=== PATIENT | female | born 1950 | race Caucasian/White ===

== ENCOUNTER 2018-02-24 18:56 | Emergency (ER) | payer OTHER ==
[~2018-02-24] VITALS: Ht 157.5 cm; Wt 84.4 kg
--- NOTE | 2018-02-24 19:04 | NUR ---
PT BIBA ALS
--- NOTE | 2018-02-24 19:09 | NUR ---
PT TAKEN TO BED 10
[2018-02-24 19:14] VITALS: BP 134/69
--- NOTE | 2018-02-24 19:52 | NUR ---
Patient came in by [facility] with complaints of chest pain. [facility] gave her 1 dose of nitro and a breathing treatment. pain level dropped from a 10/10 to 4/10 non radiating. patient is on 2L OF O2 with a SAT. OF 94. Wheezing bilateral upon assessment. When [facility] moved her, she had a panic attack and had SOB. patient has an IV on the left AC 20G. Patient has a productive cough and has pain in the head and chest when coughing. patient states that coming into the hospital, her fingers and arms went numb. but gained her feeling back. she has a history of COPD and asthma and CHF. Patient also has a history of heart attack, stroke, HTN.
[2018-02-24] MEDS ORDERED: NITROGLYCERIN 0.4 MG TAB SL ONE (20:45)
[2018-02-24] MEDS ORDERED: MORPHINE SULFATE 2 MG/ML SYR IVP ONE (20:45)
[2018-02-24] MEDS ORDERED: ONDANSETRON 4 MG/2 ML VIAL IVP ONE (20:45)
--- NOTE | 2018-02-24 21:35 | NUR ---
PATIENT REFUSED MEDICATION DR ELI WAS NOTIFIED
--- NOTE | 2018-02-24 21:47 | NUR ---
Dr. Finnegan evaluating patient at bedside.
[2018-02-24 21:49] LABS: BASOPHILS % (AUTO) 0.2 % (0.0-2.0); EOSINOPHILS # (AUTO) 0.1 K/uL (0-0.4); EOSINOPHILS % (AUTO) 1.7 % (0.0-4.0); HEMATOCRIT 38.9 % (36-48); HEMOGLOBIN 13.1 g/dL (12.0-16.0); LYMPHOCYTES # (AUTO) 0.9 K/uL (2.5-16.5); LYMPHOCYTES % (AUTO) 13.1 % (20.5-51.1); MEAN CORPUSCULAR HEMOGLOBIN 30 pg (27-31); MEAN CORPUSCULAR HGB CONC 34 g/dL (33-37); MEAN CORPUSCULAR VOLUME 89.7 fL (80-94); MONOCYTES # (AUTO) 0.7 K/uL (0.8-1.0); MONOCYTES % (AUTO) 9.4 % (1.7-9.3); NEUTROPHILS # (AUTO) 5.5 K/uL (1.8-7.7); NEUTROPHILS % (AUTO) 75.6 % (42.2-75.2); PLATELET COUNT (AUTO) 203 K/uL (140-450); RED BLOOD CELL COUNT(AUTO) 4.34 MIL/uL (4.20-5.40); RED CELL DISTRIBUTION WIDTH 13.2 % (11.6-13.7); WHITE BLOOD COUNT (AUTO) 7.2 K/uL (4.8-10.8)
[2018-02-24 22:08] LABS: CARBON DIOXIDE 31.5 mmol/L (21-32); CREATININE 1.2 mg/dL (0.6-1.3); POTASSIUM 4.5 mmol/L (3.5-5.1)
[2018-02-24 22:15] LABS: PROTHROMBIN TIME 10.9 secs (10.8-13.4)
[2018-02-24 22:16] LABS: ALBUMIN 3.4 g/dL (3.4-5.0); TOTAL BILIRUBIN 0.9 mg/dL (0.0-1.0)
[2018-02-24] MEDS ORDERED: IPRATROPIUM 0.02% 0.5 MG/2.5 ML NEBU INH ONE (22:40)
[2018-02-24] MEDS ORDERED: ALBUTEROL 0.083% 2.5 MG/3 ML NEBU INH ONE (22:40)
[2018-02-24] MEDS ORDERED: methylPREDNISolone SS 125 MG/2 ML VIAL IVP ONE (22:40)
--- NOTE | 2018-02-24 22:43 | NUR ---
Respiratory Therapist at bedside for respiratory intervention.
--- NOTE | 2018-02-24 22:48 | NUR ---
Respiratory Therapist at bedside for respiratory intervention. Patient tolerated .
--- NOTE | 2018-02-24 23:40 | NUR ---
ct came for patient
--- NOTE | 2018-02-24 23:58 | NUR ---
PT RETURN FROM CT
[2018-02-25] MEDS ORDERED: AZITHROMYCIN 250 MG TAB PO ONE (00:55)
[2018-02-25 01:11] VITALS: BP 109/62
[2018-02-25] MEDS ORDERED: FURO-570 PO (01:14)
[2018-02-25] MEDS ORDERED: ALBU-118 IH (01:14)
[2018-02-25] MEDS ORDERED: LORA-476 PO (01:14)
[2018-02-25] MEDS ORDERED: CHOL5000 PO (01:14)
[2018-02-25] MEDS ORDERED: SIMV40TA1 PO (01:14)
[2018-02-25] MEDS ORDERED: LISI30TA6 PO (01:14)
[2018-02-25] MEDS ORDERED: ASPI325T49 PO (01:14)
[2018-02-25] MEDS ORDERED: PAX10 PO (01:14)
[2018-02-25] MEDS ORDERED: SPIMDI INH (01:14)
[2018-02-25] MEDS ORDERED: CARV3.12 PO (01:14)
[2018-02-25] MEDS ORDERED: FLUO40CA6 PO (01:14)
[2018-02-25] MEDS ORDERED: ACET-9800 PO (01:18)
[2018-02-25] MEDS ORDERED: FORM1 IH (01:18)
[2018-02-25] MEDS ORDERED: CYAN1TAB67 PO (01:18)
--- NOTE | 2018-02-25 01:56 | NUR ---
Patient discharged with v/s stable. Written and verbal after care instructions given and explained. Patient alert, oriented and verbalized understanding of instructions. Ambulatory with steady gait. All questions addressed prior to discharge. ID band removed. Patient advised to follow up with PMD. Rx of PREDNISONE, ALBUTEROL, AND ZITHROMAX WAS given. Patient educated on indication of medication including possible reaction and side effects. Opportunity to ask questions provided and answered.
== END 2018-02-25 01:56 | disposition home or self-care (01) ==
LOC: MED 18:56
DX: J44.1 Chronic obstructive pulmonary disease with (acute) exacerbation (principal); R07.9 Chest pain, unspecified; I10 Essential (primary) hypertension; Z88.0 Allergy status to penicillin; Z88.2 Allergy status to sulfonamides; Z86.73 Personal history of transient ischemic attack (TIA), and cerebral infarction without residual deficits
CPT/HCPCS: 36415; 71045; 71275; 80053; 83880; 84484; 85025; 85379; 85610; 85730; 93005; 94640; 96374; 99285; J2930; J7613; J7644; Q9967; J2270; J2405

== ENCOUNTER 2018-06-07 23:05 | Emergency (ER) | payer OTHER ==
[~2018-06-07] VITALS: Ht 154.9 cm; Wt 85.3 kg
[~2018-06-07 23:05] MED LIST: ACET-9800 PO; ALBU-118 IH; ASPI325T49 PO; CARV3.12 PO; CHOL5000 PO; CYAN1TAB67 PO; FLUO40CA6 PO; FORM1 IH; FURO-570 PO; LISI30TA6 PO; LORA-476 PO; PAX10 PO; SIMV40TA1 PO; SPIMDI INH
--- NOTE | 2018-06-07 23:05 | NUR ---
PT MICA ALS. TAKEN TO BED 1
[2018-06-07 23:06] VITALS: BP 131/96
--- NOTE | 2018-06-07 23:06 | NUR ---
67/F BIBA FROM HOME. PT WAS WALKING TO BATHROOM, HAD AN EPISODE OF DIZZINESS AND LIGHTHEADEDNESS, PT FELL ON HER KNEES, POSSIBLE SYNCOPE, PT REPORTS NOT REMEMBERING MUCH OF WHAT HAPPENED. PER EMS, PT NSR ON 12 LEAD, BS 134, 200ML NS INFUSED ON IV L AC 20G. PT ARRIVES AOX4, GCS 15, PERRLA, AMBULATES INDEPENDENTLY. LUNG SOUNDS CLEAR BL. PT DENIES CP, SOB, VOMITING, DIARRHEA OR ANY PAIN. PT REPORTS NAUSEA THAT RESOLVED. BS 176 AT THIS TIME. HX COPD, CHF, [place], HTN, HLD, SMOKING RX LISINOPRIL, LABETALOL, LORAZEPAM, SIMVASTATIN, ALBUTEROL INHALER, FUROSEMIDE, ASPIRIN
--- NOTE | 2018-06-07 23:22 | NUR ---
Dr. Gtz evaluating patient at bedside.
--- NOTE | 2018-06-07 23:29 | NUR ---
FAMILY AT BEDSIDE
[2018-06-07] MEDS: NACL 0.9% 1,000 ML IV ONE (23:40)
--- NOTE | 2018-06-07 23:44 | NUR ---
PROPERTY MANAGER AT BEDSIDE
[2018-06-07 23:58] LABS: BASOPHILS % (AUTO) 0.3 % (0.0-2.0); EOSINOPHILS # (AUTO) 0.4 K/uL (0-0.4); EOSINOPHILS % (AUTO) 3.4 % (0.0-4.0); HEMATOCRIT 37.7 % (36-48); HEMOGLOBIN 12.4 g/dL (12.0-16.0); LYMPHOCYTES # (AUTO) 2.3 K/uL (2.5-16.5); LYMPHOCYTES % (AUTO) 21.7 % (20.5-51.1); MEAN CORPUSCULAR HEMOGLOBIN 30 pg (27-31); MEAN CORPUSCULAR HGB CONC 33 g/dL (33-37); MEAN CORPUSCULAR VOLUME 91.2 fL (80-94); MONOCYTES # (AUTO) 0.7 K/uL (0.8-1.0); NEUTROPHILS # (AUTO) 7.1 K/uL (1.8-7.7); NEUTROPHILS % (AUTO) 67.6 % (42.2-75.2); PLATELET COUNT (AUTO) 240 K/uL (140-450); RED BLOOD CELL COUNT(AUTO) 4.13 MIL/uL (4.20-5.40); RED CELL DISTRIBUTION WIDTH 13.1 % (11.6-13.7); WHITE BLOOD COUNT (AUTO) 10.5 K/uL (4.8-10.8)
[2018-06-08 00:10] LABS: CARBON DIOXIDE 32.7 mmol/L (21-32); CREATININE 1.7 mg/dL (0.6-1.3); POTASSIUM 3.7 mmol/L (3.5-5.1)
[2018-06-08 00:16] LABS: ALBUMIN 3.1 g/dL (3.4-5.0); TOTAL BILIRUBIN 0.6 mg/dL (0.0-1.0)
[2018-06-08] MEDS: KETOROLAC 30 MG/ML VIAL IVP ONE (00:31)
[2018-06-08 00:46] VITALS: BP 94/87
== END 2018-06-08 00:47 | disposition home or self-care (01) ==
LOC: MED 23:05
DX: R19.7 Diarrhea, unspecified (principal); R55 Syncope and collapse; E86.0 Dehydration; I10 Essential (primary) hypertension; F17.200 Nicotine dependence, unspecified, uncomplicated; J44.9 Chronic obstructive pulmonary disease, unspecified; Z88.0 Allergy status to penicillin; Z88.2 Allergy status to sulfonamides; Z79.899 Other long term (current) drug therapy; Z79.82 Long term (current) use of aspirin; Z86.73 Personal history of transient ischemic attack (TIA), and cerebral infarction without residual deficits; Z90.49 Acquired absence of other specified parts of digestive tract
CPT/HCPCS: 36415; 80053; 81002; 82948; 84484; 85025; 93005; 96361; 96374; 99285; J1885; J7030

== ENCOUNTER 2023-07-22 08:07 | Inpatient (IN) | payer OTHER ==
[~2023-07-22] VITALS: Ht 167.6 cm; Wt 83.9 kg
[2023-07-22] VITALS (12 sets, daily range): BP systolic 109–159; BP diastolic 55–116; PULSE 24–141; RESP 6–24; TEMP 97–97.4; O2SAT 84–100
[~2023-07-22 08:07] MED LIST changes: +ASPI-1205 PO; -ASPI325T49 PO; -CHOL5000 PO; -CYAN1TAB67 PO; -FLUO40CA6 PO; -FORM1 IH; +MOME13HF7 IH; +SIMV-373 PO; -SIMV40TA1 PO
[2023-07-22] MEDS ORDERED: INTUBATION KIT MC ONE (08:09)
[2023-07-22] MEDS ORDERED: ROCURONIUM 50 MG/5 ML VIAL IV ONE (08:18)
[2023-07-22] MEDS ORDERED: NACL 0.9% 1,000 ML IV SCH ×2 (08:25→08:35)
[2023-07-22] MEDS ORDERED: PROPOFOL 1000 MG/100 ML PREMIX 100 ML IV ONE (08:29)
[2023-07-22] MEDS ORDERED: ETOMIDATE 20 MG/10 ML VIAL IVP ONE (08:30)
[2023-07-22] MEDS ORDERED: AZITHROMYCIN 500 MG in DEXTROSE 5% 250 ML IV ONE (08:30)
[2023-07-22] MEDS ORDERED: SUCCINYLCHOLINE CHLORIDE 200 MG/10 ML VIAL IVP ONE (08:30)
[2023-07-22] MEDS ORDERED: VANCOMYCIN 1,000 MG in DEXTROSE 5% 250 ML IV ONE (08:30)
[2023-07-22] MEDS ORDERED: methylPREDNISolone SS 125 MG/2 ML VIAL IVP ONE ×2 (08:30→21:00)
[2023-07-22] MEDS ORDERED: ALBUTEROL SULFATE/IPRATROPIU 3 ML SOL IH ONE ×2 (08:30→09:38)
[2023-07-22] MEDS ORDERED: PROPOFOL 1000 MG/100 ML PREMIX 100 ML IV STA (08:31)
[2023-07-22 09:06] LABS: BASOPHILS # (AUTO) 0.1 K/uL (0.00-0.22); EOSINOPHILS # (AUTO) 0.5 K/uL (0-0.4); HEMATOCRIT 36.3 % (36-48); HEMOGLOBIN 11.6 g/dL (12.0-16.0); LYMPHOCYTES # (AUTO) 2.6 K/uL (2.5-16.5); MEAN CORPUSCULAR HEMOGLOBIN 29 pg (27-31); MEAN CORPUSCULAR HGB CONC 32 g/dL (33-37); MEAN CORPUSCULAR VOLUME 91.9 fL (80-94); MONOCYTES # (AUTO) 0.5 K/uL (0.8-1.0); RED BLOOD CELL COUNT(AUTO) 3.95 MIL/uL (4.20-5.40)
[2023-07-22 09:10] LABS: BASOPHILS % (AUTO) 0.7 % (0.0-2.0); EOSINOPHILS % (AUTO) 2.7 % (0.0-4.0); LYMPHOCYTES % (AUTO) 12.9 % (20.5-51.1); MONOCYTES % (AUTO) 2.4 % (1.7-9.3); NEUTROPHILS # (AUTO) 16.2 K/uL (1.8-7.7); NEUTROPHILS % (AUTO) 81.3 % (42.2-75.2); PLATELET COUNT (AUTO) 436 K/uL (140-450); RED CELL DISTRIBUTION WIDTH 14.1 % (11.6-13.7)
[2023-07-22 09:24] LABS: ALANINE AMINOTRANSFERASE 18 U/L (12-78); ALBUMIN 2.6 g/dL (3.4-5.0); ALKALINE PHOSPHATASE 107 U/L (50-136); ASPARTATE AMINOTRANSFERASE 22 U/L (15-37); CALCIUM 8.1 mg/dL (8.5-10.1); CHLORIDE 102 mmol/L (98-107); CREATININE 1.2 mg/dL (0.6-1.3); GLUCOSE 236 mg/dL (74-106); POTASSIUM 4.3 mmol/L (3.5-5.1); SODIUM SERUM 138 mmol/L (136-145); TOTAL BILIRUBIN 0.6 mg/dL (0.0-1.0); TOTAL PROTEIN, SERUM 6.9 g/dL (6.4-8.2); UREA NITROGEN, BLOOD 9 mg/dL (7-18)
[2023-07-22] MEDS ORDERED: VANCOMYCIN 1,000 MG VIAL ONE (09:24)
[2023-07-22] MEDS ORDERED: AZITHROMYCIN 500 MG INJ VIAL IV ONE (09:24)
[2023-07-22 09:27] LABS: INR 1.16 (0.8-1.2); PROTHROMBIN TIME 12.1 secs (10.8-13.4)
[2023-07-22 09:34] LABS: CREATINE KINASE, TOTAL 54 U/L (26-192)
[2023-07-22 09:51] LABS: LACTIC ACID 3.4 mmol/L (0.4-2.0)
[2023-07-22 09:54] LABS: BLOOD GAS BASE EXCESS -2.2 mmol/L (-2.0-2.0); BLOOD GAS HCO3 25.7 mmol/L (22-26); BLOOD GAS O2 SAT% 98.9 % (92.0-98.5); BLOOD GAS PCO2 59.4 mmHg (35-45); BLOOD GAS PH 7.254 (7.35-7.45); BLOOD GAS PO2 177.9 mmHg (75-100)
[2023-07-22 10:02] LABS: APPEARANCE,URINE CLEAR (CLEAR); BILIRUBIN,URINE NEGATIVE (NEGATIVE); BLOOD, URINE NEGATIVE (NEGATIVE); COLOR,URINE YELLOW (YELLOW); LEUKOCYTE ESTERASE ,URINE NEGATIVE (NEGATIVE); NITRITE, URINE NEGATIVE (NEGATIVE); PROTEIN,URINE NEGATIVE (NEGATIVE); UGLUCOSE NEGATIVE (NEGATIVE); UROBILINOGEN,URINE 0.2 EU/dL (0.2 - 1)
[2023-07-22 10:07] LABS: CARBON DIOXIDE 26.3 mmol/L (21-32)
[2023-07-22 10:19] LABS: PARTIAL THROMBOPLASTIN TIME 70.7 secs (22-35.6)
[2023-07-22] MEDS ORDERED: KCL 20 MEQ IN 100 mL PREMIX 200 ML IV PRN (11:00)
[2023-07-22] MEDS ORDERED: MAG SULF 2000 MG/WATER PREMIX 50 ML IV PRN (11:00)
[2023-07-22] MEDS ORDERED: VANCOMYCIN PER PHARMACY MC PRN (11:00)
[2023-07-22] MEDS ORDERED: MORPHINE SULFATE 2 MG/ML SYR IVP PRN (11:00)
[2023-07-22] MEDS ORDERED: ONDANSETRON 4 MG/2 ML VIAL IVP PRN (11:00)
[2023-07-22] MEDS ORDERED: LEVOFLOXACIN 750 MG/D5W PREMIX 150 ML IV SCH (11:05)
[2023-07-22] MEDS ORDERED: PROPOFOL 1000 MG/100 ML PREMIX 100 ML IV PRN (11:15)
[2023-07-22] MEDS ORDERED: PARO10TA8 PO (11:29)
[2023-07-22] MEDS ORDERED: FURO40TA9 PO (11:29)
[2023-07-22] MEDS ORDERED: SIMV-33 PO (11:29)
[2023-07-22] MEDS ORDERED: LISI40TA8 PO (11:29)
[2023-07-22] MEDS ORDERED: ALBUTEROL SULFATE/IPRATROPIU 3 ML SOL IH SCH (13:00)
[2023-07-22] MEDS: DEXT 5% /NACL 0.9% 1,000 ML IV SCH (13:00)
[2023-07-22] MEDS: PROPOFOL 1000 MG/100 ML PREMIX 100 ML IV PRN ×2 (13:54→21:06)
[2023-07-22] MEDS: ALBUTEROL SULFATE/IPRATROPIU 3 ML SOL IH SCH ×2 (14:03→19:00)
[2023-07-22] MEDS ORDERED: cefTRIAXone 1,000 MG VIAL ONE (14:14)
[2023-07-22] MEDS ORDERED: hydrALAZINE 20 MG/ML VIAL IVP PRN (18:55)
[2023-07-22] MEDS: methylPREDNISolone SS 40 MG/ML VIAL IVP SCH ×2 (20:53→21:00)
[2023-07-22] MEDS ORDERED: VANCOMYCIN 1.25GM PREMIX 250 ML IV SCH (21:00)
[2023-07-22 23:01] LABS: FLU A ANTIGEN negative (NEGATIVE); FLU B ANTIGEN NEGATIVE (NEGATIVE)
[2023-07-23] VITALS (32 sets, daily range): BP systolic 82–159; BP diastolic 39–131; PULSE 24–114; RESP 14–26; TEMP 97.7–98.3; O2SAT 69–100
[2023-07-23] MEDS: ALBUTEROL SULFATE/IPRATROPIU 3 ML SOL IH SCH ×4 (00:56→18:42)
[2023-07-23] MEDS: PROPOFOL 1000 MG/100 ML PREMIX 100 ML IV PRN ×2 (05:06→08:44)
[2023-07-23] MEDS: methylPREDNISolone SS 40 MG/ML VIAL IVP SCH ×3 (05:08→20:28)
[2023-07-23] MEDS: DEXT 5% /NACL 0.9% 1,000 ML IV SCH (05:09)
[2023-07-23] MEDS: AZITHROMYCIN 500 MG in DEXTROSE 5% 250 ML IV SCH (08:42)
[2023-07-23 09:16] LABS: BASOPHILS # (AUTO) 0.1 K/uL (0.00-0.22); BASOPHILS % (AUTO) 0.8 % (0.0-2.0); HEMATOCRIT 33.5 % (36-48); HEMOGLOBIN 10.8 g/dL (12.0-16.0); LYMPHOCYTES # (AUTO) 0.7 K/uL (2.5-16.5); LYMPHOCYTES % (AUTO) 4.3 % (20.5-51.1); MEAN CORPUSCULAR HEMOGLOBIN 29 pg (27-31); MEAN CORPUSCULAR HGB CONC 32 g/dL (33-37); MEAN CORPUSCULAR VOLUME 90.3 fL (80-94); MONOCYTES # (AUTO) 0.4 K/uL (0.8-1.0); MONOCYTES % (AUTO) 2.2 % (1.7-9.3); NEUTROPHILS # (AUTO) 15.4 K/uL (1.8-7.7); NEUTROPHILS % (AUTO) 92.7 % (42.2-75.2); PLATELET COUNT (AUTO) 330 K/uL (140-450); RED BLOOD CELL COUNT(AUTO) 3.71 MIL/uL (4.20-5.40); WHITE BLOOD COUNT (AUTO) 16.6 K/uL (4.8-10.8)
[2023-07-23 09:30] LABS: ALANINE AMINOTRANSFERASE 16 U/L (12-78); ALBUMIN 2.7 g/dL (3.4-5.0); ALKALINE PHOSPHATASE 92 U/L (50-136); ANION GAP 13.4 (8-16); ASPARTATE AMINOTRANSFERASE 13 U/L (15-37); CALCIUM 8.3 mg/dL (8.5-10.1); CARBON DIOXIDE 27.6 mmol/L (21-32); CHLORIDE 105 mmol/L (98-107); CREATININE 1.2 mg/dL (0.6-1.3); GLUCOSE 192 mg/dL (74-106); MAGNESIUM 1.5 mg/dL (1.8-2.4); SODIUM SERUM 142 mmol/L (136-145); TOTAL BILIRUBIN 0.5 mg/dL (0.0-1.0); TOTAL PROTEIN, SERUM 6.6 g/dL (6.4-8.2); UREA NITROGEN, BLOOD 8 mg/dL (7-18)
[2023-07-23 10:48] LABS: BLOOD GAS BASE EXCESS 1.6 mmol/L (-2.0-2.0); BLOOD GAS PCO2 30.7 mmHg (35-45); BLOOD GAS PH 7.511 (7.35-7.45); BLOOD GAS PO2 100.7 mmHg (75-100)
[2023-07-23 10:49] LABS: BLOOD GAS O2 SAT% 98.1 % (92.0-98.5)
[2023-07-23] MEDS: ALBUTEROL SULFATE/IPRATROPIU 3 ML SOL IH PRN (14:44)
[2023-07-23] MEDS: FUROSEMIDE 40 MG/4 ML VIAL IVP SCH (20:28)
[2023-07-24] VITALS (19 sets, daily range): BP systolic 110–140; BP diastolic 55–81; PULSE 69–110; RESP 14–27; TEMP 97.1–98.1; O2SAT 96–99
[2023-07-24] MEDS: ALBUTEROL SULFATE/IPRATROPIU 3 ML SOL IH SCH (01:26)
[2023-07-24] MEDS: methylPREDNISolone SS 40 MG/ML VIAL IVP SCH ×3 (04:58→21:00)
[2023-07-24 08:35] LABS: BASOPHILS % (AUTO) 0.2 % (0.0-2.0); HEMATOCRIT 31.9 % (36-48); HEMOGLOBIN 10.3 g/dL (12.0-16.0); LYMPHOCYTES # (AUTO) 0.5 K/uL (2.5-16.5); LYMPHOCYTES % (AUTO) 2.7 % (20.5-51.1); MEAN CORPUSCULAR HEMOGLOBIN 29 pg (27-31); MEAN CORPUSCULAR HGB CONC 32 g/dL (33-37); MEAN CORPUSCULAR VOLUME 90.1 fL (80-94); MONOCYTES # (AUTO) 0.7 K/uL (0.8-1.0); MONOCYTES % (AUTO) 3.7 % (1.7-9.3); NEUTROPHILS # (AUTO) 16.8 K/uL (1.8-7.7); NEUTROPHILS % (AUTO) 93.4 % (42.2-75.2); PLATELET COUNT (AUTO) 352 K/uL (140-450); RED BLOOD CELL COUNT(AUTO) 3.54 MIL/uL (4.20-5.40); RED CELL DISTRIBUTION WIDTH 14.3 % (11.6-13.7)
[2023-07-24] MEDS: AZITHROMYCIN 500 MG in DEXTROSE 5% 250 ML IV SCH (08:39)
[2023-07-24] MEDS: FUROSEMIDE 40 MG/4 ML VIAL IVP SCH ×3 (08:39→21:30)
[2023-07-24 09:16] LABS: ALANINE AMINOTRANSFERASE 10 U/L (12-78); ALBUMIN 2.8 g/dL (3.4-5.0); ALKALINE PHOSPHATASE 78 U/L (50-136); ANION GAP 12.5 (8-16); ASPARTATE AMINOTRANSFERASE 17 U/L (15-37); CALCIUM 8.7 mg/dL (8.5-10.1); CARBON DIOXIDE 29.8 mmol/L (21-32); CHLORIDE 105 mmol/L (98-107); CREATININE 1.1 mg/dL (0.6-1.3); GLUCOSE 147 mg/dL (74-106); MAGNESIUM 2.2 mg/dL (1.8-2.4); POTASSIUM 4.3 mmol/L (3.5-5.1); SODIUM SERUM 143 mmol/L (136-145); TOTAL BILIRUBIN 0.4 mg/dL (0.0-1.0); TOTAL PROTEIN, SERUM 6.4 g/dL (6.4-8.2); UREA NITROGEN, BLOOD 15 mg/dL (7-18)
[2023-07-24] MEDS: LORazepam 2 MG/ML VIAL IVP PRN ×2 (13:52→18:06)
[2023-07-24] MEDS: ALBUTEROL SULFATE/IPRATROPIU 3 ML SOL IH PRN (19:09)
[2023-07-25] VITALS (9 sets, daily range): BP systolic 119–139; BP diastolic 51–67; PULSE 76–101; RESP 16–20; TEMP 97.1–98.2; O2SAT 94–98
[2023-07-25] MEDS: LORazepam 2 MG/ML VIAL IVP PRN ×3 (02:13→20:26)
[2023-07-25] MEDS: methylPREDNISolone SS 40 MG/ML VIAL IVP SCH ×3 (05:22→20:58)
[2023-07-25 07:11] LABS: BASOPHILS % (AUTO) 0.1 % (0.0-2.0); HEMATOCRIT 30.8 % (36-48); HEMOGLOBIN 10.2 g/dL (12.0-16.0); LYMPHOCYTES # (AUTO) 0.5 K/uL (2.5-16.5); MEAN CORPUSCULAR HEMOGLOBIN 30 pg (27-31); MEAN CORPUSCULAR HGB CONC 33 g/dL (33-37); MEAN CORPUSCULAR VOLUME 89.8 fL (80-94); MONOCYTES # (AUTO) 0.4 K/uL (0.8-1.0); MONOCYTES % (AUTO) 3.6 % (1.7-9.3); NEUTROPHILS # (AUTO) 10.1 K/uL (1.8-7.7); PLATELET COUNT (AUTO) 305 K/uL (140-450); RED BLOOD CELL COUNT(AUTO) 3.43 MIL/uL (4.20-5.40); RED CELL DISTRIBUTION WIDTH 14.2 % (11.6-13.7)
[2023-07-25 07:33] LABS: ALANINE AMINOTRANSFERASE 28 U/L (12-78); ALBUMIN 2.8 g/dL (3.4-5.0); ALKALINE PHOSPHATASE 77 U/L (50-136); ANION GAP 8.9 (8-16); ASPARTATE AMINOTRANSFERASE 25 U/L (15-37); CALCIUM 8.2 mg/dL (8.5-10.1); CARBON DIOXIDE 32.4 mmol/L (21-32); CHLORIDE 104 mmol/L (98-107); GLUCOSE 147 mg/dL (74-106); MAGNESIUM 2.3 mg/dL (1.8-2.4); POTASSIUM 4.3 mmol/L (3.5-5.1); SODIUM SERUM 141 mmol/L (136-145); TOTAL BILIRUBIN 0.6 mg/dL (0.0-1.0); TOTAL PROTEIN, SERUM 6.4 g/dL (6.4-8.2); UREA NITROGEN, BLOOD 24 mg/dL (7-18)
[2023-07-25] MEDS: FUROSEMIDE 40 MG/4 ML VIAL IVP SCH ×2 (08:38→20:50)
[2023-07-25] MEDS: AZITHROMYCIN 500 MG in DEXTROSE 5% 250 ML IV SCH (08:39)
[2023-07-25 08:42] LABS: LYMPHOCYTES % (AUTO) 4.6 % (20.5-51.1); NEUTROPHILS % (AUTO) 91.7 % (42.2-75.2)
[2023-07-25] MEDS: ALBUTEROL SULFATE/IPRATROPIU 3 ML SOL IH PRN (15:47)
[2023-07-25 16:25] LABS: APPEARANCE,URINE CLEAR (CLEAR); BILIRUBIN,URINE NEGATIVE (NEGATIVE); BLOOD, URINE 2+ (NEGATIVE); COLOR,URINE YELLOW (YELLOW); LEUKOCYTE ESTERASE ,URINE NEGATIVE (NEGATIVE); NITRITE, URINE NEGATIVE (NEGATIVE); PROTEIN,URINE NEGATIVE (NEGATIVE); UGLUCOSE NEGATIVE (NEGATIVE); UROBILINOGEN,URINE 0.2 EU/dL (0.2 - 1)
[2023-07-25 16:40] LABS: RBC,URINE 11-20 (MOD) /HPF (0-5)
[2023-07-25 16:41] LABS: BACTERIA,URINE FEW /HPF (None Seen); FINE GRANULAR CASTS,URINE 0-10 /LPF (None Seen); MUCUS,URINE None Seen /LPF (None Seen); SQUAMOUS EPITHELIAL CELL,UR 4-10 (MOD) /LPF (0-3 (FEW)); TRICHOMONAS,URINE None Seen /HPF (None Seen); YEAST,URINE None Seen /HPF (None Seen)
[2023-07-26] VITALS (8 sets, daily range): BP systolic 124–156; BP diastolic 52–78; PULSE 70–105; RESP 17–24; TEMP 97.1–98; O2SAT 92–100
[2023-07-26 06:13] LABS: HEMATOCRIT 31.2 % (36-48); HEMOGLOBIN 10.3 g/dL (12.0-16.0); LYMPHOCYTES # (AUTO) 0.6 K/uL (2.5-16.5); LYMPHOCYTES % (AUTO) 4.7 % (20.5-51.1); MEAN CORPUSCULAR HEMOGLOBIN 30 pg (27-31); MEAN CORPUSCULAR HGB CONC 33 g/dL (33-37); MONOCYTES # (AUTO) 0.4 K/uL (0.8-1.0); MONOCYTES % (AUTO) 3.6 % (1.7-9.3); NEUTROPHILS # (AUTO) 11.4 K/uL (1.8-7.7); NEUTROPHILS % (AUTO) 91.7 % (42.2-75.2); PLATELET COUNT (AUTO) 282 K/uL (140-450); RED BLOOD CELL COUNT(AUTO) 3.51 MIL/uL (4.20-5.40); RED CELL DISTRIBUTION WIDTH 14.1 % (11.6-13.7); WHITE BLOOD COUNT (AUTO) 12.5 K/uL (4.8-10.8)
[2023-07-26] MEDS: methylPREDNISolone SS 40 MG/ML VIAL IVP SCH ×3 (06:15→22:56)
[2023-07-26 06:44] LABS: ALANINE AMINOTRANSFERASE 41 U/L (12-78); ALBUMIN 2.7 g/dL (3.4-5.0); ALKALINE PHOSPHATASE 74 U/L (50-136); ANION GAP 6.1 (8-16); ASPARTATE AMINOTRANSFERASE 26 U/L (15-37); CARBON DIOXIDE 36.4 mmol/L (21-32); CHLORIDE 104 mmol/L (98-107); CREATININE 1.1 mg/dL (0.6-1.3); GLUCOSE 159 mg/dL (74-106); MAGNESIUM 2.4 mg/dL (1.8-2.4); POTASSIUM 4.5 mmol/L (3.5-5.1); SODIUM SERUM 142 mmol/L (136-145); TOTAL BILIRUBIN 0.5 mg/dL (0.0-1.0); TOTAL PROTEIN, SERUM 6.1 g/dL (6.4-8.2); UREA NITROGEN, BLOOD 32 mg/dL (7-18)
[2023-07-26] MEDS: ALBUTEROL SULFATE/IPRATROPIU 3 ML SOL IH PRN (07:58)
[2023-07-26] MEDS: FUROSEMIDE 40 MG/4 ML VIAL IVP SCH ×2 (08:10→22:55)
[2023-07-26] MEDS: LORazepam 2 MG/ML VIAL IVP PRN ×2 (08:11→14:12)
[2023-07-26] MEDS: AZITHROMYCIN 500 MG in DEXTROSE 5% 250 ML IV SCH (08:23)
[2023-07-26] MEDS ORDERED: COMMUNICATION ORDER MC PRN (18:30)
[2023-07-26] MEDS ORDERED: cefTRIAXone 1,000 MG in LIDOCAINE MPF 1% 2.1 ML IM SCH ×4 (18:45)
[2023-07-26] MEDS: LORazepam 1 MG TAB PO PRN (23:10)
[2023-07-27] VITALS (10 sets, daily range): BP systolic 136–157; BP diastolic 60–81; PULSE 67–94; RESP 17–20; TEMP 97–98.5; O2SAT 90–98
[2023-07-27] MEDS: methylPREDNISolone SS 40 MG/ML VIAL IVP SCH ×3 (05:00→21:43)
[2023-07-27 05:41] LABS: HEMATOCRIT 31.7 % (36-48); HEMOGLOBIN 10.6 g/dL (12.0-16.0); LYMPHOCYTES # (AUTO) 0.5 K/uL (2.5-16.5); LYMPHOCYTES % (AUTO) 4.7 % (20.5-51.1); MEAN CORPUSCULAR HEMOGLOBIN 30 pg (27-31); MEAN CORPUSCULAR HGB CONC 33 g/dL (33-37); MEAN CORPUSCULAR VOLUME 88.6 fL (80-94); MONOCYTES # (AUTO) 0.5 K/uL (0.8-1.0); MONOCYTES % (AUTO) 4.5 % (1.7-9.3); NEUTROPHILS # (AUTO) 9.8 K/uL (1.8-7.7); NEUTROPHILS % (AUTO) 90.8 % (42.2-75.2); PLATELET COUNT (AUTO) 277 K/uL (140-450); RED BLOOD CELL COUNT(AUTO) 3.58 MIL/uL (4.20-5.40); RED CELL DISTRIBUTION WIDTH 14.1 % (11.6-13.7); WHITE BLOOD COUNT (AUTO) 10.8 K/uL (4.8-10.8)
[2023-07-27 06:14] LABS: ALANINE AMINOTRANSFERASE 37 U/L (12-78); ALBUMIN 2.7 g/dL (3.4-5.0); ALKALINE PHOSPHATASE 72 U/L (50-136); ASPARTATE AMINOTRANSFERASE 16 U/L (15-37); CALCIUM 7.7 mg/dL (8.5-10.1); CHLORIDE 99 mmol/L (98-107); GLUCOSE 167 mg/dL (74-106); MAGNESIUM 2.3 mg/dL (1.8-2.4); SODIUM SERUM 140 mmol/L (136-145); TOTAL BILIRUBIN 0.5 mg/dL (0.0-1.0); TOTAL PROTEIN, SERUM 5.9 g/dL (6.4-8.2); UREA NITROGEN, BLOOD 34 mg/dL (7-18)
[2023-07-27] MEDS: FUROSEMIDE 40 MG/4 ML VIAL IVP SCH ×2 (08:52→21:43)
[2023-07-27] MEDS: AZITHROMYCIN 500 MG in DEXTROSE 5% 250 ML IV SCH (08:53)
[2023-07-27] MEDS: LORazepam 1 MG TAB PO PRN ×2 (09:41→15:40)
[2023-07-27] MEDS: ALBUTEROL SULFATE/IPRATROPIU 3 ML SOL IH PRN ×2 (13:02→18:56)
[2023-07-27] MEDS ORDERED: cefTRIAXone 1,000 MG in LIDOCAINE MPF 1% 2.1 ML IM SCH (18:00)
[2023-07-28] VITALS (9 sets, daily range): BP systolic 115–153; BP diastolic 57–83; PULSE 68–98; RESP 17–20; TEMP 96.6–98.2; O2SAT 90–98
[2023-07-28] MEDS: LORazepam 1 MG TAB PO PRN ×3 (02:14→23:47)
[2023-07-28] MEDS: methylPREDNISolone SS 40 MG/ML VIAL IVP SCH ×3 (04:46→21:15)
[2023-07-28] MEDS: FUROSEMIDE 40 MG/4 ML VIAL IVP SCH ×2 (09:04→21:16)
[2023-07-28] MEDS: AZITHROMYCIN 500 MG in DEXTROSE 5% 250 ML IV SCH (09:04)
[2023-07-28] MEDS: ALBUTEROL SULFATE/IPRATROPIU 3 ML SOL IH PRN ×3 (11:40→22:36)
[2023-07-29] VITALS (8 sets, daily range): BP systolic 129–151; BP diastolic 60–66; PULSE 84–103; RESP 17–20; TEMP 97.1–98.1; O2SAT 94–97
[2023-07-29] MEDS: methylPREDNISolone SS 40 MG/ML VIAL IVP SCH (04:26)
[2023-07-29] MEDS: ALBUTEROL SULFATE/IPRATROPIU 3 ML SOL IH PRN ×3 (08:10→23:20)
[2023-07-29] MEDS: LORazepam 1 MG TAB PO PRN ×2 (11:52→18:27)
[2023-07-30] VITALS (7 sets, daily range): BP systolic 130–133; BP diastolic 56–70; PULSE 80–94; RESP 16–20; TEMP 97.4–98.6; O2SAT 94–98
[2023-07-30] MEDS: ALBUTEROL SULFATE/IPRATROPIU 3 ML SOL IH PRN ×3 (06:57→18:05)
[2023-07-30] MEDS ORDERED: predniSONE 20 MG TAB PO SCH (09:00)
[2023-07-30] MEDS: LORazepam 1 MG TAB PO PRN ×2 (09:11→22:05)
[2023-07-30] MEDS: FUROSEMIDE 40 MG TAB PO SCH (09:12)
[2023-07-31] VITALS (9 sets, daily range): BP systolic 115–129; BP diastolic 51–64; PULSE 78–84; RESP 14–20; TEMP 97–98.5; O2SAT 83–97
[2023-07-31] MEDS: ALBUTEROL SULFATE/IPRATROPIU 3 ML SOL IH PRN ×3 (03:32→17:19)
[2023-07-31] MEDS: FUROSEMIDE 40 MG TAB PO SCH (09:05)
[2023-07-31] MEDS: LORazepam 1 MG TAB PO PRN ×2 (10:27→18:35)
[2023-08-01] MEDS: LORazepam 1 MG TAB PO PRN ×3 (00:07→21:59)
[2023-08-01 08:00] VITALS: BP 130/60; PULSE 87; RESP 18; TEMP 97.2; O2SAT 99
[2023-08-01] MEDS: FUROSEMIDE 40 MG TAB PO SCH (09:13)
[2023-08-01] MEDS: ALBUTEROL SULFATE/IPRATROPIU 3 ML SOL IH PRN (12:16)
[2023-08-01 12:17] VITALS: PULSE 91; RESP 20; O2SAT 93
[2023-08-01 16:00] VITALS: BP 124/50; PULSE 87; RESP 18; TEMP 97.7; O2SAT 98
[2023-08-01 20:00] VITALS: PULSE 94; RESP 18; TEMP 98.3; O2SAT 99
[2023-08-01 20:20] VITALS: PULSE 88; RESP 16; O2SAT 97; O2SAT 98
[2023-08-01 21:13] VITALS: BP 101/50; PULSE 18; RESP 18; TEMP 98.3; O2SAT 95
[2023-08-02] MEDS: ALBUTEROL SULFATE/IPRATROPIU 3 ML SOL IH PRN ×2 (01:57→17:29)
[2023-08-02 01:59] VITALS: PULSE 91; RESP 18; O2SAT 94
[2023-08-02 05:59] LABS: BASOPHILS % (AUTO) 0.1 % (0.0-2.0); EOSINOPHILS # (AUTO) 0.6 K/uL (0-0.4); EOSINOPHILS % (AUTO) 4.6 % (0.0-4.0); HEMOGLOBIN 10.4 g/dL (12.0-16.0); LYMPHOCYTES # (AUTO) 1.1 K/uL (2.5-16.5); MEAN CORPUSCULAR HEMOGLOBIN 29 pg (27-31); MEAN CORPUSCULAR HGB CONC 33 g/dL (33-37); MEAN CORPUSCULAR VOLUME 89.8 fL (80-94); MONOCYTES # (AUTO) 1.1 K/uL (0.8-1.0); NEUTROPHILS # (AUTO) 10.9 K/uL (1.8-7.7); NEUTROPHILS % (AUTO) 79.3 % (42.2-75.2); PLATELET COUNT (AUTO) 222 K/uL (140-450); RED BLOOD CELL COUNT(AUTO) 3.57 MIL/uL (4.20-5.40); RED CELL DISTRIBUTION WIDTH 14.8 % (11.6-13.7); WHITE BLOOD COUNT (AUTO) 13.8 K/uL (4.8-10.8)
[2023-08-02 07:50] VITALS: O2SAT 99
[2023-08-02 08:00] VITALS: BP 110/47; PULSE 79; RESP 16; TEMP 97.6; O2SAT 97; O2SAT 99
[2023-08-02] MEDS: FUROSEMIDE 40 MG TAB PO SCH (09:35)
[2023-08-02] MEDS: LORazepam 1 MG TAB PO PRN ×2 (12:53→21:15)
[2023-08-02 16:00] VITALS: BP 127/55; PULSE 90; RESP 18; TEMP 97; O2SAT 99
[2023-08-02 17:28] VITALS: PULSE 90; RESP 16; O2SAT 95
[2023-08-02 20:00] VITALS: BP 102/42; PULSE 79; PULSE 87; RESP 18; RESP 19; TEMP 98; O2SAT 98
[2023-08-03 05:56] LABS: BASOPHILS % (AUTO) 0.3 % (0.0-2.0); EOSINOPHILS # (AUTO) 0.7 K/uL (0-0.4); EOSINOPHILS % (AUTO) 4.9 % (0.0-4.0); HEMATOCRIT 30.4 % (36-48); HEMOGLOBIN 9.9 g/dL (12.0-16.0); LYMPHOCYTES # (AUTO) 1.1 K/uL (2.5-16.5); LYMPHOCYTES % (AUTO) 8.2 % (20.5-51.1); MEAN CORPUSCULAR HEMOGLOBIN 29 pg (27-31); MEAN CORPUSCULAR HGB CONC 33 g/dL (33-37); MEAN CORPUSCULAR VOLUME 89.6 fL (80-94); MONOCYTES # (AUTO) 1.4 K/uL (0.8-1.0); MONOCYTES % (AUTO) 9.9 % (1.7-9.3); NEUTROPHILS # (AUTO) 10.6 K/uL (1.8-7.7); NEUTROPHILS % (AUTO) 76.7 % (42.2-75.2); PLATELET COUNT (AUTO) 224 K/uL (140-450); RED BLOOD CELL COUNT(AUTO) 3.39 MIL/uL (4.20-5.40); RED CELL DISTRIBUTION WIDTH 14.7 % (11.6-13.7); WHITE BLOOD COUNT (AUTO) 13.7 K/uL (4.8-10.8)
[2023-08-03 06:17] LABS: ANION GAP 6.4 (8-16); CARBON DIOXIDE 36.2 mmol/L (21-32); CHLORIDE 99 mmol/L (98-107); CREATININE 0.9 mg/dL (0.6-1.3); GLUCOSE 104 mg/dL (74-106); POTASSIUM 3.6 mmol/L (3.5-5.1); SODIUM SERUM 138 mmol/L (136-145); UREA NITROGEN, BLOOD 13 mg/dL (7-18)
[2023-08-03 08:00] VITALS: BP 138/51; PULSE 84; RESP 18; TEMP 97.3; O2SAT 100; O2SAT 98
[2023-08-03] MEDS: FUROSEMIDE 40 MG TAB PO SCH (09:33)
[2023-08-03 10:47] VITALS: PULSE 82; RESP 18; O2SAT 97
[2023-08-03] MEDS: ALBUTEROL SULFATE/IPRATROPIU 3 ML SOL IH PRN (10:47)
[2023-08-03] MEDS ORDERED: LORazepam 1 MG TAB PO PRN (12:50)
[2023-08-03] MEDS ORDERED: ALBU3SOL83 IH (15:21)
[2023-08-03] MEDS ORDERED: LORA-476 PO (15:21)
[2023-08-03 16:00] VITALS: BP 118/65; PULSE 78; RESP 18; TEMP 96.8; O2SAT 97
== END 2023-08-03 18:49 | DRG 871 ==
LOC: MED 08:07 → MMU 10:59 → MIC 11:01 → MTU 07-25 01:50
PROVIDERS: ADMIT Student in an Organized Health Care Education/Training Program; ATTEND Student in an Organized Health Care Education/Training Program
PROC: 5A1945Z Respiratory Ventilation, 24-96 Consecutive Hours (ICD-10-PCS; principal; 2023-07-22)
PROC: 3E0A3GC Introduction of Other Therapeutic Substance into Bone Marrow, Percutaneous Approach (ICD-10-PCS; 2023-07-22)
PROC: 0BH17EZ Insertion of Endotracheal Airway into Trachea, Via Natural or Artificial Opening (ICD-10-PCS; 2023-07-22)
DX: A41.9 Sepsis, unspecified organism (principal); G93.41 Metabolic encephalopathy; J96.01 Acute respiratory failure with hypoxia; J96.02 Acute respiratory failure with hypercapnia; J18.9 Pneumonia, unspecified organism; J45.901 Unspecified asthma with (acute) exacerbation; N17.9 Acute kidney failure, unspecified; I13.0 Hypertensive heart and chronic kidney disease with heart failure and stage 1 through stage 4 chronic kidney disease, or unspecified chronic kidney disease; N18.9 Chronic kidney disease, unspecified; F17.200 Nicotine dependence, unspecified, uncomplicated; E78.5 Hyperlipidemia, unspecified; Z20.822 Contact with and (suspected) exposure to COVID-19; I50.9 Heart failure, unspecified; Z88.0 Allergy status to penicillin; Z88.2 Allergy status to sulfonamides; Z79.899 Other long term (current) drug therapy; Z79.1 Long term (current) use of non-steroidal anti-inflammatories (NSAID); Z79.82 Long term (current) use of aspirin
CPT/HCPCS: 31500; 36415; 36556; 36600; 51702; 71045; 76770; 80048; 80053; 81001; 81003; 82330; 82550; 82553; 82803; 83605; 83735; 83874; 83880; 84484; 85025; 85610; 85730; 87040; 87081; 87086; 92526; 93005; 94003; 94640; 96365; 96367; 96375; 97110; 97112; 97116; 97530; 99291; J0330; J0360; J0456; J0696; J1644; J1940; J2001; J2060; J2704; J2920; J2930; J3370; J3475; J3490; J7060; J7512; Q0092